=== PATIENT | male | born 1995 | race African-American/Black ===

== ENCOUNTER 2022-07-13 03:58 | Emergency (ER) | payer MEDICAID ==
[~2022-07-13] VITALS: Ht 175.3 cm; Wt 108.3 kg
[2022-07-13 04:07] VITALS: BP 118/76
== END 2022-07-13 06:03 | disposition left against medical advice (07) ==
LOC: ER 04:08
DX: J02.9 Acute pharyngitis, unspecified (principal); Z53.21 Procedure and treatment not carried out due to patient leaving prior to being seen by health care provider
CPT/HCPCS: 99281

== ENCOUNTER 2024-12-06 12:31 | Emergency (ER) | payer SELFPAY ==
[~2024-12-06] VITALS: Ht 180.3 cm; Wt 100.0 kg
[2024-12-06 12:54] VITALS: O2SAT 99
[2024-12-06] MEDS ORDERED: AMOX-494 MT (13:46)
[2024-12-06] MEDS ORDERED: ISOP30DR11 EACH EAR (13:46)
[2024-12-06 15:01] VITALS: BP 105/69; PULSE 81; RESP 18; TEMP 37.1; O2SAT 100
== END 2024-12-06 15:02 | disposition home or self-care (01) ==
LOC: ER 12:31
DX: J02.9 Acute pharyngitis, unspecified (principal); H61.23 Impacted cerumen, bilateral; J45.909 Unspecified asthma, uncomplicated
CPT/HCPCS: 99283